=== PATIENT | female | born 1985 | race Caucasian/White ===

== ENCOUNTER 2017-04-01 12:17 | Emergency (ER) | payer OTHER ==
[~2017-04-01] VITALS: Ht 167.6 cm; Wt 108.9 kg
[~2017-04-01 12:17] MED LIST: ZANTAC 2525 MG
== END 2017-04-01 18:13 | disposition home or self-care (01) ==
LOC: ER 12:17
DX: J11.1 Influenza due to unidentified influenza virus with other respiratory manifestations (principal)